=== PATIENT | female | born 1995 | race Caucasian/White ===

== ENCOUNTER 2017-12-05 12:47 | Inpatient (IN) | payer OTHER ==
[~2017-12-05] VITALS: Ht 154.9 cm; Wt 64.4 kg
--- NOTE | ~2017-12-05 | EKG ---
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1995 Requested By: Rip Devries Order Number: [id number] MD: Javier Salazar Measurements Intervals [place] Rate: 72 P: 48 NC: 149 QRS: 46 QRSD: 85 T: 2 QT: 395 QTc: 433 Interpretive Statements Sinus rhythm Nonspecific ST segment abnormality Compared to ECG 12/06/2017 07:23:10 No significant change was found Electronically Signed On 12-09-2017 8:19:00 CDT by Javier Salazar [email or web address] <ELECTRONICALLY SIGNED> By: Javier Salazar MD, FAC 12/09/17818 6 6 Javier Salazar MD, [facility] /EPI
--- NOTE | ~2017-12-05 | H ---
[facility] [place] [address] HISTORY AND PHYSICAL Name: AKIN OCAMPO Room #: 216-P ADM IN M.R.#: [id number] Admission: 12/05/17 Attend Phys: Rip Devries MD Discharge: Date of : [birth year] Report #: [id number] THIS REPORT FOR: //name// CC: Kelvin Figueredo DATE OF SERVICE: 12/05/2017 REASON FOR ADMISSION: Nonsustained VT. HISTORY OF PRESENT ILLNESS: The patient is a 22-year-old with no past medical history who was recently admitted to [facility] at which time, she was seen by Dr. Glover. She presented with episodes of nonsustained VT. She underwent an echocardiogram, which showed normal LV size and function. She also underwent a stress echocardiogram, which showed no evidence of ischemia. She was sent home on beta blockers and was doing better, but started having recurrent palpitations and came to see me in clinic. I had her wear traffic monitor specialist, which showed that she continues to have runs of nonsustained VT. As such, I recommended that she be admitted to the hospital and her beta rae was held with plans to proceed with an ablation on Tuesday. PAST MEDICAL HISTORY: None. SOCIAL HISTORY: No alcohol or drug use. FAMILY HISTORY: Noncontributory. MEDICATIONS: Have been reviewed. Medications include control, beta rae and Bactrim for a recent tooth infection. REVIEW OF SYSTEMS: A 12-point review of systems was performed and was negative other than what I mentioned above. PHYSICAL EXAMINATION: VITAL SIGNS: Stable. GENERAL: She is in no acute distress. HEENT: Oropharynx is clear. NECK: Supple, with no thyromegaly. HEART: Regular rate and rhythm with ectopic beats noted. LUNGS: Clear to auscultation bilaterally. ABDOMEN: Soft, nontender, nondistended with no hepatosplenomegaly. EXTREMITIES: There is no clubbing, cyanosis, edema. NEUROLOGIC: Cranial nerves 2-12 are intact. IMPRESSION: [facility] [address] [place] [address] HISTORY AND PHYSICAL Name: AKIN OCAMPO Britany Room #: 216-P [facility] IN ..#: [id number] Admission: 12/05/17 Attend Phys: Rip Devries MD Discharge: Date of : [birth year] Report #: [id number] 1. Nonsustained ventricular tachycardia. 2. Idiopathic ventricular tachycardia. PLAN: Plan will be to monitor her in the CCU as we have her come off of her beta rae therapy. Plans will be for her to undergo EP study with ablation on Tuesday. We have discussed the details of the procedure including the risks, which include but not limited to bleeding, stroke, IA as well as damage to the [place] conduction system requiring permanent pacemaker. She and her family understand these risks and are willing to proceed. We will also obtain records from her brother who also had an ablation for SVT at [facility] By: [id number] Rip Devries MD /nt
--- NOTE | ~2017-12-05 | EKG ---
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
--- NOTE | ~2017-12-05 | D ---
[facility] [place] [address] DISCHARGE SUMMARY Name: AKIN OCAMPO Room #: 216-P [facility] IN M.R.#: [id number] Admission: 12/05/17 Attend Phys: Rip Devries MD Discharge: 12/08/17 Date of : [birth year] Report #: [id number] THIS REPORT FOR: //name// CC: Kelvin Figueredo DATE OF SERVICE: 12/08/2017 DISCHARGE DIAGNOSIS: Idiopathic ventricular tachycardia. PROCEDURE PERFORMED: VT ablation. HISTORY: The patient is a 22-year-old female with history of palpitations recently hospitalized at [facility] with episodes of nonsustained VT. At that time, she underwent echocardiogram and stress testing, which were normal. I saw her as an outpatient, placed a monitor, which showed frequent runs of nonsustained VT and therefore she was admitted for ablation. She underwent successful ablation of a PVC that was located in the left ventricle at a posterolateral region of the left ventricle. She was rendered noninducible. HOSPITAL COURSE: She was monitored overnight in the hospital with no clinical recurrence. On the day of discharge, she denied any chest pain, shortness of breath, PND, orthopnea. On physical exam, heart was regular in rate and rhythm. Lungs were clear to auscultation bilaterally and her bilateral groins showed no significant bruising or hematoma. As such, she was deemed stable for discharge home. She will continue with control and aspirin therapy. She will follow up with me in clinic in 2 weeks. By: [id number] Rip Devries MD /nt
--- NOTE | ~2017-12-05 | P ---
[facility] [place] [address] PROCEDURE REPORT Name: AKIN OCAMPO Room #: 216-P [facility] IN M.R.#: [id number] Admission: 12/05/17 Attend Phys: Rip Devries MD Discharge: Date of : [birth year] Report #: [id number] THIS REPORT FOR: //name// CC: Kelvin Trejograndfield Figueredo DATE OF SERVICE: 12/07/2017 PREOPERATIVE DIAGNOSES: 1. Symptomatic premature ventricular contractions 2. Nonsustained ventricular tachycardia. HISTORY: The patient is a 22-year-old female who recently started having palpitations and was admitted to [facility]. At that time, she underwent a stress test, which was within normal limits with no evidence of ischemia and an echocardiogram that showed a structurally normal heart. She was discharged on a beta rae and was seen by me in clinic. She wore cardiac monitor technician, which showed continuation of frequent PVCs and runs of nonsustained VT. As such, she was admitted to the hospital where her beta blockers were discontinued and was set up for a VT ablation today. PROCEDURES PERFORMED: 1. Ventricular tachycardia ablation, CPT code 10040. 2. Left atrial pacing and recording, CPT code 36793. 3. Program stimulation and pacing after IV drug, CPT code 95981. 4. Intracardiac echocardiogram, CPT code 61399. 5. Arterial line placement, CPT code 08173. ANESTHESIA: The patient underwent MAC anesthesia with no anesthesia related complications. There were periods during the procedure where we did turn off all sedation to allow her to wake up to see if this would result in any spontaneous PVCs. There were no anesthesia related complications. The patient underwent informed consent. We discussed the details of the procedure including the risks, which include, but not limited to, bleeding, vascular damage, stroke, CA as well as damage to the [place] conduction system requiring permanent pacemaker. She and her family understood these risks and willing to proceed. DESCRIPTION OF PROCEDURE: The patient was brought to the EP laboratory in a fasting and unsedated state and prepped and draped in a sterile fashion. At baseline, she was in sinus rhythm. She was having frequent PVCs that were occasionally isolated, but at times, she would have runs of nonsustained VT lasting anywhere from 3-10 beats. These were right bundle branch block morphology with a transition in V5. They were negative in leads II, III and aVF [address] [address] PROCEDURE REPORT Name: AKIN OCAMPO Room #: 216-P [facility] IN M.R.#: [id number] Admission: 12/05/17 Attend Phys: Rip Devries MD Discharge: Date of : [birth year] Report #: [id number] and they were negative in lead I. Next, I obtained access to the bilateral femoral veins placing an 8 and 6-Ethiopian short sheath in the right femoral vein and a 7 and 9-Ethiopian short sheath in the left femoral vein using the modified Seldinger technique. Next, I obtained right femoral arterial access and placed an 8-Ethiopian short sheath and this sheath was sutured down to the skin to prevent dislodgement. Next, under fluoroscopy, I placed a quadripolar catheter into the right ventricle in the His position, and a decapolar catheter was easily placed into the coronary sinus. Ice catheter was placed into the right atrium. At baseline, she was in sinus rhythm with a sinus cycle length of 625 milliseconds, MO interval 140 milliseconds, QRS duration 70 milliseconds, QT interval 340 milliseconds, AH interval 83 milliseconds and HV interval 47 milliseconds with frequent PVCs as previously described. Using intracardiac ultrasound, I created a detailed 3D geometry of the left atrium with specific emphasis of the aortic valve as well as the left ventricle and the papillary muscles. Next, the patient was systemically heparinized and I entered the left ventricle with a PentaRay catheter to obtain baseline anatomy. Due to the ectopy associated with this catheter, I did not use this for mapping of the PVC. I then went into the left ventricle with a SmartTouch ThermoCool catheter via retroaortic approach and we performed mapping with this. By this point, the patient was having infrequent PVCs. I therefore started by performing space maps. Based on the morphology, I thought this could potentially be a fascicular PVC; however, pace maps in this location were not ideal. I therefore went more lateral based on the morphology of lead I suggesting a more lateral location. Once I started doing pace maps from a more lateral location, pace maps became more consistent with the clinical PVC. I also started going more posterior given the inferior surface wave morphology. This resulted in an improvement in her pace mapping. At one point, I was obtaining pace maps that were 97% identical to the clinical PVC. We decided to perform ablation at this location. There were few spontaneous PVCs. We believe at this location and they appear to be early. We did 3 lesions here and the ablation resulted in bursts of what looked to be like the clinical PVC. We then performed post-ablation testing. Post ablation, we started the patient on isoproterenol 1 mcg per minute and her heart rates increased to 140-150 beats a minute. I performed a basic EP study and AV block was noted to be less than 240 milliseconds. Single atrial extrastimuli were delivered and we could not induce any SVT or any other arrhythmias on. Isoproterenol, she had no PVCs, whatsoever. As we turned off the isoproterenol, she had several more PVCs, although much less frequent than before. She did have one run of nonsustained VT lasting 3 beats. The PVC morphology was slightly different than the initial PVC morphology, but there was just some slight variations in the notching in the precordial leads, but for all practical purposes, it was pretty much the same. Therefore, I went again with my ablation catheter into the left ventricle. We did some mapping. We had some occasional spontaneous PVCs and there was a location that was about 20 milliseconds pre-QRS morphology. The pace maps here were around 85-90%. I did a total of 6 additional ablation lesions based on some pace maps and mapping. These ablation lesions were performed at 50 [place]low and 55 degrees and again, there were frequent [facility] [address] [place] [address] PROCEDURE REPORT Name: DAMARISAKIN HONG Room #: 216-P ADM IN .R.#: [id number] Admission: 12/05/17 Attend Phys: Rip Devries MD Discharge: Date of : [birth year] Report #: [id number] bursts of the PVC at this location. POSTABLATION FINDINGS: Post ablation, we monitored the patient for a period of an hour and a half. We resumed isoproterenol with her heart rates increasing to 150 beats a minute. We also turned off all sedation to the point where she was actually conversing with us and was not really sedated anymore. During this period of time, she had no more of the clinical PVC. She occasionally would have a left bundle branch block PVC that may have just been due to the right ventricular pacing catheter, but clearly, we could no longer find the clinical PVC. As such, the procedure was concluded. I pulled all catheters. The patient received systemic protamine and once the ACT was within acceptable range, all catheters and sheaths were pulled. Hemostasis was obtained and the patient awoke neurologically and hemodynamically intact. CONCLUSIONS: 1. Successful ablation of an idiopathic left ventricular premature ventricular contraction located at the posterior lateral aspect of the left ventricle. 2. Normal sinoatrial latanya function. 3. Normal atrioventricular latanya function. 4. Normal His-Purkinje function. 5. No inducible supraventricular arrhythmias. 6. No inducible ventricular tachycardia post ablation. By: [id number] Rip Devries MD /nt
--- NOTE | ~2017-12-05 | EKG ---
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
[~2017-12-05 12:47] MED LIST: BACTRIM DS TAB1 EACH PO; ESTARYLLA1 EACH PO; IBUPROFEN 600600 M1 PO; KEFLEX500 M1 PO; LOPRESSOR25 PO; MACROBID 100 M100 M1 PO; ONDANSETRON HCL4 M2 PO; ROBAXIN 750 MG750 M1 PO
[2017-12-05 20:30] VITALS: BP 120/70
[2017-12-06 00:45] VITALS: BP 146/96
[2017-12-06 04:06] LABS: HEMATOCRIT 36.3 % (37.0-47.0); HEMOGLOBIN 12.5 gm/dL (12.0-15.0); MCH 30.6 pg (26.0-34.0); MCHC 34.3 g/dL (28.0-37.0); MCV 89.1 fL (80.0-100.0); RBC 4.07 mil/uL (4.20-5.00); RDW 12.8 % (10.5-14.5); WBC 8.2 thou/uL (4.0-11.0)
[2017-12-06 04:12] LABS: ALBUMIN 3.6 g/dL (3.4-5.0); CREATININE 0.8 mg/dL (0.6-1.0); TOTAL BILIRUBIN 0.3 mg/dL (<0.1-1.0); TOTAL PROTEIN 6.9 g/dL (6.4-8.2)
[2017-12-06 04:45] VITALS: BP 103/61
[2017-12-06 08:39] VITALS: BP 109/69
[2017-12-06 13:00] VITALS: BP 124/69
[2017-12-06 17:43] VITALS: BP 128/93
[2017-12-06 19:49] VITALS: BP 126/73
[2017-12-07] VITALS (15 sets, daily range): BP systolic 102–130; BP diastolic 62–92
[2017-12-08 00:45] VITALS: BP 111/62
[2017-12-08 03:48] LABS: CALCIUM 8.5 mg/dL (8.5-10.1); CREATININE 0.7 mg/dL (0.6-1.0); POTASSIUM 4.1 mmol/L (3.5-5.1)
[2017-12-08 03:52] LABS: HEMATOCRIT 35.2 % (37.0-47.0); HEMOGLOBIN 12.1 gm/dL (12.0-15.0); MCH 30.8 pg (26.0-34.0); MCHC 34.3 g/dL (28.0-37.0); MCV 89.8 fL (80.0-100.0); RBC 3.92 mil/uL (4.20-5.00); RDW 12.4 % (10.5-14.5); WBC 6.7 thou/uL (4.0-11.0)
[2017-12-08 05:11] VITALS: BP 119/73
[2017-12-08 08:19] VITALS: BP 127/91
[2017-12-08] MEDS ORDERED: ASPIR 8181 M1 PO (08:43)
[2017-12-08 10:24] VITALS: BP 127/91
== END 2017-12-08 11:35 | disposition home or self-care (01) | DRG 274 ==
LOC: 2N 13:06 → ENTRNSPT 12-08 11:27 → EDTRNSPTSTS 12-08 11:29 → 2N 12-08 11:35
PROVIDERS: Internal Medicine Cardiovascular Disease
PROC: 02583ZZ Destruction of Conduction Mechanism, Percutaneous Approach (ICD-10-PCS; principal; 2017-12-07)
PROC: 4A133B1 Monitoring of Arterial Pressure, Peripheral, Percutaneous Approach (ICD-10-PCS; 2017-12-07)
PROC: 4A133J1 Monitoring of Arterial Pulse, Peripheral, Percutaneous Approach (ICD-10-PCS; 2017-12-07)
PROC: 04HY32Z Insertion of Monitoring Device into Lower Artery, Percutaneous Approach (ICD-10-PCS; 2017-12-07)
DX: I47.2 Ventricular tachycardia (principal); I49.3 Ventricular premature depolarization; Z23 Encounter for immunization; Z79.899 Other long term (current) drug therapy
CPT/HCPCS: 10797; 62110; 62900; 70005